=== PATIENT | female | born 1980 | race American Indian/Alaskan Native ===

== ENCOUNTER 2017-03-10 18:43 | Emergency (ER) | payer SELFPAY ==
[2017-03-10 19:54] LABS: Basophils % (Auto) 0.8 % (0.0-1.8); Eosinophils % (Auto) 2.5 % (0.0-4.3); Hematocrit 36.8 % (30.3-42.9); Hemoglobin 11.8 gm/dl (10.1-14.3); Mean Corpuscular HGB Conc 32 % (30-34); Mean Corpuscular Hemoglobin 28 pg (28-32); Mean Corpuscular Volume 86 fl (79-97); Platelet Count 217 K/mm3 (140-440); Red Blood Count 4.26 M/mm3 (3.65-5.03); White Blood Count 7.9 K/mm3 (4.5-11.0)
[2017-03-10 20:06] LABS: Anion Gap 17 mmol/L; BUN/Creatinine Ratio 11.42; Blood Urea Nitrogen 8 mg/dL (7-17); Calcium 8.7 mg/dL (8.4-10.2); Carbon Dioxide 26 mmol/L (22-30); Chloride 101.2 mmol/L (98-107); Glucose 105 mg/dL (65-100); Potassium 3.7 mmol/L (3.6-5.0); Sodium 140 mmol/L (137-145)
--- NOTE | 2017-03-10 21:29 | Emergency Department Report ---
HPI - General Chief Complaint: Dizziness Time Seen by Provider: 03/10/17 21:17 - HPI HPI: This is a 36-year-old -[place] female who presents to the emergency department, dropped off by a coworker, with complaint of some nonspecific dizziness that occurred earlier today at work. She denies any loss of consciousness. She says it felt like she was slightly unstable and that the "table was moving but I know it wasn't." She denies any fever, vision change, slurred speech, problems with ambulation, chest pain, shortness of breath. She did not take anything for symptoms prior to presentation. She denies any past medical history. She does not have a primary care doctor. She denies any tobacco or illicit drug use or abuse. No recent travel or sick contacts at home. ED Past Medical Hx - Past Medical History Additional medical history: OBESITY - Surgical History Additional Surgical History: X 3 - Social History Smoking Status: Never Smoker Substance Use Type: None - Medications Home Medications: Home Medications Medication Instructions Recorded Confirmed Last Taken Type No Known Home Medications [No 03/10/17 03/10/17 Unknown History Reported Home Medications] ED Review of Systems ROS: Stated complaint: DIZZINESS,FAINTING, Other details as noted in HPI Comment: All other systems reviewed and negative Constitutional: denies: chills, fever Eyes: denies: eye pain, eye discharge, vision change ENT: denies: ear pain, throat pain Respiratory: denies: cough, shortness of breath, wheezing Cardiovascular: denies: chest pain, palpitations Gastrointestinal: denies: abdominal pain, nausea, diarrhea Genitourinary: denies: urgency, dysuria, discharge Musculoskeletal: denies: back pain, joint swelling, arthralgia Skin: denies: rash, lesions Neurological: headache (mild), other (dizziness). denies: weakness, numbness Physical Exam - Physical Exam Vital Signs: Vital Signs 03/10/17 18:59 Temperature 99.0 F Pulse Rate 67 Respiratory 17 Rate Blood Pressure 148/77 O2 Sat by Pulse 99 Oximetry Physical Exam: GENERAL: The patient is well-developed well-nourished. HEENT: Normocephalic. Atraumatic. Extraocular motions are intact. Patient has moist mucous membranes. Pupils equal reactive to light bilaterally. No nystagmus. NECK: Supple. Trachea is midline. CHEST/LUNGS: Clear to auscultation. There is no respiratory distress noted. HEART/CARDIOVASCULAR: Regular. There is no tachycardia. There is no gallop rub or murmur. ABDOMEN: Abdomen is soft, nontender. Patient has normal bowel sounds. There is no abdominal distention. Morbidly obese habitus. SKIN: There is no rash. There is no edema. There is no diaphoresis. NEURO: The patient is awake, alert, and oriented. The patient is cooperative. The patient has no focal neurologic deficits. The patient has normal speech. Cranial nerves II through XII grossly intact. No pronator drift. No dysmetria. MUSCULOSKELETAL: There is no tenderness or deformity. There is no limitation range of motion. There is no evidence of acute injury. Muscle strength 5 out of 5 for upper and lower extremities bilaterally. ED Course Vital Signs 03/10/17 18:59 Temperature 99.0 F Pulse Rate 67 Respiratory 17 Rate Blood Pressure 148/77 O2 Sat by Pulse 99 Oximetry ED Medical Decision Making - Lab Data Result diagrams: 03/10/17 19:29 03/10/17 19:29 - EKG Data -: EKG Interpreted by Or EKG shows normal: sinus rhythm, axis, intervals, QRS complexes, ST-T waves Rate: bradycardia (58 bpm) - EKG Data When compared to previous EKG there are: previous EKG unavailable Interpretation: normal EKG (with very mild bradycardia at 58 bpm) - Medical Decision Making 36-year-old female presents to the emergency department with some nonspecific dizziness that occurred earlier today at work but has since improved. There are no focal, motor or sensory deficits and cranial nerves are intact. EKG does not show any signs of ST elevation [place] or any dysrhythmia. Labs are unremarkable including no signs of infection, normal thyroid function and the patient is not . She was seen ambulatory in the emergency department and appears stable while doing so. She appears stable for discharge home at this time. Patient was also positive slightly with orthostatics. She's been given referrals for primary care physicians and will return to the ER with any worsening of her symptoms, strokelike symptoms, or any acute distress. - Differential Diagnosis orthostatic hypotension, vasovagal, TIA, vertigo Critical Care Time: No Critical care attestation.: If time is entered above; I have spent that time in minutes in the direct care of this critically ill patient, excluding procedure time. ED Disposition Clinical Impression: Dizziness Disposition: DC-01 TO HOME OR SELFCARE Is pt being admited?: No Condition: Stable Instructions: Vertigo (ED), Lightheadedness (ED), Dizziness (ED) Additional Instructions: Please follow-up with a primary care physician in the next few days. Return to the emergency department with any worsening of her symptoms, inability to walk, vision change, intractable headache, chest pain, shortness of breath, or any acute distress. Referrals: PRIMARY CARE, [Primary Care Provider] - 3-5 Days VANNESA ORTEGA MD [Staff Physician] - 3-5 Days ROMAN MICHAEL MD [Staff Physician] - 3-5 Days [facility] [Outside] - 3-5 Days Time of Disposition: 22:53
[2017-03-10 21:44] LABS: Urine Drugs of Abuse Note Disclamer
[2017-03-10 21:50] LABS: Bilirubin,Urine NEG (Negative); Blood,Urine NEG (Negative); Ketones,Urine NEG (Negative); Leukocyte Esterase,Urine NEG (Negative); Mucus,Urine FEW /HPF; Nitrite,Urine NEG (Negative); Protein,Urine <15 mg/dL mg/dL (Negative); Urobilinogen,Urine < 2.0 mg/dL (<2.0); WBC,Urine < 1.0 /HPF (0.0-6.0)
[2017-03-10] MEDS: TYLENOL PO ONE (22:25)
[2017-03-10 23:05] VITALS: BP 128/86
== END 2017-03-10 23:08 | disposition home or self-care (01) ==
LOC: ED 18:43
DX: R42 Dizziness and giddiness (principal)
CPT/HCPCS: 36415; 80048; 80307; 81001; 81025; 84443; 84484; 85025; 93005; 93010; 99284